=== PATIENT | female | born 1965 | race Caucasian/White ===

== ENCOUNTER → 2021-12-14 | Outpatient (CLI) | payer BC ==
--- NOTE | 2021-12-14 16:19 | XR ---
EXAMINATION TYPE: XR chest 2V DATE OF EXAM: 12/14/2021 COMPARISON: NONE TECHNIQUE: PA and lateral views submitted. HISTORY: History of malignancy FINDINGS: The lungs are clear and there is no pneumothorax, pleural effusion, or focal pneumonia. No overt fa ilure. Heart size normal. Hypertrophic and degenerative changes of the spine. IMPRESSION: 1. No acute process.
--- NOTE | 2021-12-14 22:29 | CT ---
EXAMINATION TYPE: CT abdomen pelvis w con DATE OF EXAM: 12/14/2021 HISTORY: endometrial adenocarcinoma CT DLP: 1361mGycm Automated Exposure Control for Dose Reduction was Utilized. CONTRAST: CT scan of the abdomen and pelvis is performed with IV Contrast, patient injected with 100 mL of Isov ue 300. COMPARISON: None. FINDINGS: LUNG BASES: No significant abnormality is appreciated. LIVER/GB: Intraluminal gallstone axial image 28. PANCREAS: No significant abnormality is seen. SPLEEN: No significant abnormality is seen. ADRENALS: No significant abnormality is seen. KIDNEYS: Symmetric cortical medullary uptake and excretion without hydronephrosis seen bilaterally. BOWEL: Oral contrast reaches level of rectum. No suspicious small or large bowel dilatation.. UTERUS/ADNEXA: Anteverted uterus with prominence of the central hypodense endometrial stripe for post menopausal female correlates with patient's history of endometrial cancer. The bilateral ovaries are identified and within normal limits in size. LYMPH NODES: No greater than 1cm abdominal or pelvic lymph nodes are appreciated. OSSEOUS STRUCTURES: Transitional type vertebra lumbosacral junction. OTHER: Greater than 50% narrowing at the celiac artery origin sagittal image 37, correlate to exclude celiac artery compression syndrome. IMPRESSION: No suspicious masses or adenopathy to suggest metastatic disease from recently diagnosed endometrial carcinoma.
== END | disposition home or self-care (01) ==
LOC: RADCTMAIN 15:32
PROVIDERS: ATTEND Obstetrics & Gynecology
DX: C54.1 Malignant neoplasm of endometrium (principal)
CPT/HCPCS: 71046; 74177; Q9967

== ENCOUNTER → 2024-01-31 | Outpatient (CLI) | payer BC ==
--- NOTE | 2024-02-01 12:12 | MM ---
Reason for Exam: Screening (asymptomatic). Patient History: Menarche at age 11. First Full-Term at age 29. Late child-bearing (after 29). Left ovary removed at age 56. Right ovary removed at age 56. Hysterectomy at age 56. Postmenopausal. Risk Values: Hui 5 year model risk: 1.9%. NCI Lifetime model risk: 10.2%. Tissue Density: There are scattered areas of fibroglandular density. Findings: Analyzed By CAD. There is no suspicious group of microcalcifications. There is nodularity approximate 7 cm from the nipple central inner and lower inner left breast. Additional views and ultrasound recommended. Overall Assessment: Incomplete: need additional imaging evaluation, BI-RAD 0 Management: Diagnostic Mammogram of the left breast. . Patient should continue monthly self-breast exams. A clinical breast exam by your physician is recommended on an annual basis. This exam should not preclude additional follow-up of suspicious palpable abnormalities. Note on Hui scores and lifetime risk: 1. A Hui score greater than 3% is considered moderate risk. If this is the case, consider specialist referral to assess eligibility for a risk reducing agent. 2. If overall lifetime risk for the development of breast cancer is 20% or higher, the patient may qualify for future screening with alternating mammogram and breast MRI. Electronically signed and approved by: Tam Hobbs M.D. Radiologis
== END | disposition home or self-care (01) ==
LOC: RADMAMWWP 16:24
PROVIDERS: ATTEND Obstetrics & Gynecology
DX: Z12.31 Encounter for screening mammogram for malignant neoplasm of breast (principal); Z78.0 Asymptomatic menopausal state
CPT/HCPCS: 77063; 77067

== ENCOUNTER → 2024-02-08 | Outpatient (CLI) | payer BC ==
--- NOTE | 2024-02-08 14:32 | MM ---
Reason for Exam: Additional evaluation requested from abnormal screening. Last screening mammogram was performed less than 1 month ago. Patient History: Menarche at age 11. First Full-Term at age 29. Late child-bearing (after 29). Left ovary removed at age 56. Right ovary removed at age 56. Hysterectomy at age 56. Postmenopausal. Risk Values: Hui 5 year model risk: 1.9%. NCI Lifetime model risk: 10.2%. Prior Study Comparison: 01/31/2024 Bilateral MG 3D screening mammo w/cad, [facility]. Tissue Density: Left: There are scattered areas of fibroglandular density. Findings: Analyzed By CAD. Nodularity persists at the approximate 12:00 position left breast 6.7 cm from the nipple. 2 or 3 small nodules less than 5 mm identified. Ultrasound recommended. Overall Assessment: Incomplete: need additional imaging evaluation, BI-RAD 0 Management: Diagnostic Breast Ultrasound of the left breast. . Results were given to the patient verbally at the time of exam. Patient should continue monthly self-breast exams. A clinical breast exam by your physician is recommended on an annual basis. This exam should not preclude additional follow-up of suspicious palpable abnormalities. Note on Hui scores and lifetime risk: 1. A Hui score greater than 3% is considered moderate risk. If this is the case, consider specialist referral to assess eligibility for a risk reducing agent. 2. If overall lifetime risk for the development of breast cancer is 20% or higher, the patient may qualify for future screening with alternating mammogram and breast MRI. Electronically signed and approved by: Tam Hobbs M.D. Radiologis
--- NOTE | 2024-02-08 14:52 | USB ---
Reason for Exam: Additional evaluation requested from abnormal screening. Patient History: Menarche at age 11. First Full-Term at age 29. Late child-bearing (after 29). Left ovary removed at age 56. Right ovary removed at age 56. Hysterectomy at age 56. Postmenopausal. Risk Values: Hui 5 year model risk: 1.9%. NCI Lifetime model risk: 10.2%. Technique: Method: Targeted. Prior Study Comparison: 01/31/2024 Bilateral MG 3D screening mammo w/cad, [facility]. Findings: The upper section of the breast of the left breast, the axilla of the left breast and the retroareolar of the left breast were scanned. 2 small complex lesions are seen at the left 12:00 position measuring 3 x 3 mm and 3 mm. No solid masses seen. Overall Assessment: Benign, BI-RAD 2 Management: Screening Mammogram of both breasts in 1 year. A clinical breast exam by your physician is recommended on an annual basis and results should be correlated with mammographic findings. This exam should not preclude additional follow-up of suspicious palpable abnormalities. Results were given to the patient verbally at the time of exam. Electronically signed and approved by: Tam Hobbs M.D. Radiologis
== END | disposition home or self-care (01) ==
LOC: RADMAMWWP 14:03
PROVIDERS: ATTEND Obstetrics & Gynecology
DX: R92.8 Other abnormal and inconclusive findings on diagnostic imaging of breast (principal); Z78.0 Asymptomatic menopausal state
CPT/HCPCS: 77061; 77065

== ENCOUNTER 2024-02-21 09:33 | Day surgery (SDC) | payer BC ==
[2024-02-21] MEDS ORDERED: PROPOFOL 10 MG/ML 20 ML VIAL IV ONE (10:11)
[2024-02-21] MEDS: LACTATED RINGERS 1,000 ML IV ONE (10:12)
[2024-02-21 10:13] VITALS: RESP 16; TEMP 97.2
[2024-02-21] MEDS ORDERED: LACTATED RINGERS 1,000 ML IV SCH (10:13)
--- NOTE | 2024-02-21 10:31 | P.PCN ---
Date of Procedure: 02/21/24 Procedure(s) Performed: BRIEF HISTORY: Patient is a 58-year-old pleasant white female scheduled for an elective colonoscopy as a part of evaluation of intermittent lower abdominal pain and diarrhea for the last several years duration. PROCEDURE PERFORMED: Colonoscopy with biopsy. PREOPERATIVE DIAGNOSIS: Lower abdominal pain and intermittent diarrhea IV sedation per Anesthesia. PROCEDURE: After informed consent was obtained, the patient, was brought into the endoscopy unit. IV sedation was administered by Anesthesia under continuous monitoring. Digital rectal examination was normal. Initially the Olympus CF-160 flexible video colonoscope was then inserted in the rectum, gradually advanced into the cecum without any difficulty. Careful examination was performed as the scope was gradually being withdrawn. Ileocecal valve and the appendiceal orifice were visualized and appeared normal. Prep was excellent. Mucosa of the cecum, ascending colon, transverse colon, descending colon, sigmoid colon, and rectum appeared normal.Into sigmoid: There was a 5 mm polyp that was removed by cold biopsy. Scattered diverticula seen. Random biopsies were done from ascending and descending colon to evaluate for microscopic/collagenous colitis. Retroflexion was performed in the rectum and no lesions were seen. The patient tolerated the procedure well. IMPRESSION: 5 mm;Sigmoid polyp status post removal by cold biopsy Scattered diffuse diverticulosis RECOMMENDATIONS: Findings of this examination were discussed with the patient As well as her family. She was advised to follow with the biopsy results. If the biopsy result adenoma she can have a repeat colonoscopy in 5 years.
[2024-02-21 11:43] VITALS: BP 132/74; PULSE 80
== END 2024-02-21 11:02 | disposition home or self-care (01) ==
LOC: ORWHC2ENDO 09:33
PROVIDERS: ATTEND Internal Medicine Gastroenterology
DX: K63.5 Polyp of colon (principal); K57.30 Diverticulosis of large intestine without perforation or abscess without bleeding; K52.839 Microscopic colitis, unspecified; Z79.899 Other long term (current) drug therapy
CPT/HCPCS: 88305; 45380; J2704